=== PATIENT | male | born 1995 | race Caucasian/White ===

== ENCOUNTER 2018-09-12 18:59 | Emergency (ER) | payer OTHER ==
[2018-09-12] MEDS ORDERED: RANITIDINE 50 MG/2 ML VIAL IVP ONE (19:02)
[2018-09-12] MEDS ORDERED: EPINEPHrine 1 MG/ML INJ IM ONE (19:02)
[2018-09-12] MEDS ORDERED: methylPREDNISolone SOD SUCC 125 MG/2 ML VIAL IVP ONE (19:02)
[2018-09-12] MEDS ORDERED: NS 1,000 ML IV ONE (19:02)
--- NOTE | 2018-09-12 19:04 | EDPHY ---
H & P Time Seen by Provider: 09/12/18 19:02 HPI/ROS: CHIEF COMPLAINT: Allergic reaction peanuts HISTORY OF PRESENT ILLNESS: 23-year-old male known peanut allergy arrives via private vehicle after he ate a peanut butter Twix bar shortly prior to arrival, is complaining of diffuse erythema, itching, sensation of glossal tonsillar enlargement. No prior history of intubation for allergic reaction. He does not carry an EpiPen. 50 mg of pre-hospital Benadryl via mouth which he kept down. PRIMARY CARE PROVIDER: REVIEW OF SYSTEMS: 10 systems reviewed and negative with the exception of the elements mentioned in the history of present illness PAST MEDICAL & SURGICAL HISTORY: Known peanut allergy SOCIAL HISTORY:Student PHYSICAL EXAM (Prior to examination, patient consented to physical exam, hands were washed and my usual and customary physical exam procedures followed) 1) GENERAL: Well-developed, well-nourished, alert and oriented. Appears to be in no acute distress. 2) HEAD: Normocephalic, atraumatic 3) HEENT: Pupils equal, round, reactive to light bilaterally. Sclera anicteric. [Nasopharynx, oropharynx: Voice is blunted, handling secretions and breathing comfortably 4) NECK: Full range of motion, no meningeal signs. 5) LUNGS: Clear auscultation bilaterally, no wheezes, no rhonchi, no retractions. 6) HEART: Regular rate and rhythm, no murmur, no heave, no gallop. 7) ABDOMEN: No guarding, no rebound, no focal tenderness, negative McBurney's, negative Stevens's, negative Rovsing's, negative peritoneal sign, 8) MUSCULOSKELETAL: Moving all extremities, no focal areas of tenderness, no obvious trauma. No peripheral edema or discoloration. 9) BACK: No CVA tenderness, no midline vertebral tenderness, no fluctuance, no step-off, no obvious trauma, no visual or palpable abnormality. 10) SKIN: Diffuse erythema. 11) Psychiatric: Patient is oriented X 3, there is no agitation. DIFFERENTIAL DIAGNOSIS: In no particular include but limited to urticaria, anaphylaxis, anaphylactoid (Virgen,D Floridalma) Constitutional: Initial Vital Signs Heart Rate 75 09/12/18 19:03 Respiratory Rate 18 09/12/18 19:03 Blood Pressure 160/88 H 09/12/18 19:03 O2 Sat (%) 97 09/12/18 19:03 O2 Delivery Mode Room Air Allergies/Adverse Reactions: oxycodone Allergy (Verified 09/12/18 19:02) peanut Allergy (Verified 09/12/18 19:02) Home Medications: Medication Instructions Recorded EPINEPHrine [Epipen 0.3 MG] 0.3 mg IM ONCE #2 syr 09/12/18 Medical Decision Making ED Course/Re-evaluation: 7:03 p.m.: Will administer epinephrine, Pepcid, Solu-Medrol, IV fluids. The patient consumed 50 mg pre-hospital Benadryl which he kept down. 7:26 p.m.: I re-evaluated the patient at this time, he is feeling improvement after epinephrine and other medications. He will be observed in the ER. 8:54 p.m.: Re-evaluation, asymptomatic, urticaria and erythema have resolved, airway patent, voice normalized. Plan will be discharged with EpiPen. Recommend avoiding peanut containing products in the future. Discussed biphasic response. I believe patient to have decision-making capacity. He feels comfortable being discharged. I saw this patient independently based on established practice protocols. Care of patient under supervision of secondary supervising physician Dr Mccullough. (Alexander New) Other Provider: The patient was evaluated and managed by the Physician Cash Specialist.My co- signature indicates that I have reviewed this chart and I agree with the findings and plan of care as documented. I am the secondary supervising physician. (Aviva Mccullough) - Data Points Medications Given: Discontinued Medications Epinephrine HCl (Epinephrine) 0.3 mg IM EDNOW ONE Stop: 09/12/18 19:03 Last Admin: 09/12/18 19:10 Dose: 0.3 mg Sodium Chloride (Ns) 1,000 mls @ 0 mls/hr IV ONCE ONE; Wide Open PRN Reason: Protocol Stop: 09/12/18 19:03 Last Admin: 09/12/18 19:11 Dose: 1,000 mls Methylprednisolone Sodium Succinate (Solu-Medrol) 125 mg IVP EDNOW ONE Stop: 09/12/18 19:03 Last Admin: 09/12/18 19:10 Dose: 125 mg Ranitidine HCl (Zantac) 50 mg IVP EDNOW ONE Stop: 09/12/18 19:03 Last Admin: 09/12/18 19:10 Dose: 50 mg Departure - Departure Disposition: Home, Routine, Self-Care Clinical Impression: Allergic reaction Condition: Good Instructions: Peanut Allergy (ED), Allergy Testing (ED) Additional Instructions: Avoid peanut containing products in the future. If you develop allergic response use your EpiPen immediately and call 911. Referrals: Margarita Fish MD [[facility] [place] Primary Care Provider] - 5-7 days, call for appt. (Dr. Margarita Fish is an airport operations specialist) Prescriptions: EPINEPHrine [Epipen 0.3 MG] 0.3 mg IM ONCE #2 syr
[2018-09-12 21:02] VITALS: BP 128/71
== END 2018-09-12 21:02 | disposition home or self-care (01) ==
LOC: EDSEX 18:59
DX: T78.1XXA Other adverse food reactions, not elsewhere classified, initial encounter (principal); Z91.010 Allergy to peanuts
CPT/HCPCS: 96374